=== PATIENT | female | born 2000 | race Caucasian/White ===

== ENCOUNTER 2024-02-24 10:19 | Emergency (ER) | payer BC, SELFPAY ==
[2024-02-24 10:30] VITALS: BP 110/77; PULSE 101; RESP 18; TEMP 36.2; O2SAT 100
--- NOTE | 2024-02-24 11:31 | ED.GENADULT ---
HPI - General Adult General Chief complaint: Urogenital-Female Stated complaint: Urinary Problem Source: patient Mode of arrival: ambulatory Limitations: no limitations History of Present Illness HPI narrative: Patient presents for evaluation of raised bumps to her vaginal area with associated drainage for the last 5 days. She states that the drainage is yellow and bloody. Three days ago she developed dysuria, urinary frequency, urgency, and hesitancy. No fever, chills, nausea, vomiting, diarrhea. LMP 02/01/2024. She is sexually active with one male partner, always using condoms. No other contraceptive use. Related Data Home Medications Medication Instructions Recorded Confirmed norgestimate 0.25 mg-ethinyl 1 tablet DAILY 02/24/24 02/24/24 estradiol 35 mcg tablet (Estarylla) Allergies Allergy/AdvReac Type Severity Reaction Status Date / Time No Known Allergies Allergy Verified 02/24/24 10:31 Review of Systems Review of Systems: CONSTITUTIONAL: Denies fever, chills, or sweats. EYES: Denies visual changes, redness, or discharge. ENT: Denies rhinorrhea, congestion, sore throat, or otalgia. CARDIOVASCULAR: Denies chest pain, palpitations, or edema. RESPIRATORY: Denies cough or dyspnea. GASTROINTESTINAL: Denies abdominal pain, nausea, vomiting, or diarrhea. GENITOURINARY: Reports yellow vaginal discharge. Reports urinary frequency, dysuria, urgency, hesitancy SKIN: Reports bumps to vaginal area. Denies rash or itching. MUSCULOSKELETAL: Denies back pain, joint pain, or myalgia. NEUROLOGIC: Denies headache, numbness, dizziness, or weakness. PSYCHIATRIC: Denies anxiety or depression. [facility] Past Medical History Medical History No significant past medical history Surgical History Surgical History No pertinent past surgical history Family History Family History (Updated 02/24/24 @ 11:43 by SEDRICK Fernández, ALYSSA) Mother Family history non-contributory Other Malignant neoplasm of prostate Social History Social History Substance use: never Gender identity (if verbalized by the patient): Female Sexual Orientation (if Verbalized by the Patient): Straight or Heterosexual Spiritual care concerns: No Exam Narrative: GENERAL: Well-appearing, well-nourished, and in no acute distress. HEAD: Normocephalic, atraumatic. EYES: PERRLA and EOMI. ENT: Nares clear, no rhinorrhea or epistaxis. Mucous membranes moist. Oropharynx without tonsillar hypertrophy exudate or other lesions. Bilateral TMs pearly [place] nonbulging NECK: Supple. No adenopathy or masses. No carotid bruits or JVD CHEST: Clear to auscultation. No respiratory distress. No wheezes rales or rhonchi HEART: Regular rate and rhythm. No murmur heard. Normal peripheral pulses. ABDOMEN: Soft, nontender, nondistended, normal active bowel sounds. EXTREMITIES: Normal range of motion. No edema. GENITAL: There are multiple ulcerative lesions noted to the external labia and vaginal vault. No adnexal tenderness or CMT. Vaginal lesions are tender to palpation. There is mucous-consistent green/bloody drainage noted in vaginal vault NEURO: No focal deficits. Alert and oriented x3. PSYCH: Normal mood and affect. Course Course Emergency Course: This is a 23-year-old female who presented for evaluation of urinary symptoms and vaginal lesions. She has multiple or sedative lesions consistent with herpes simplex. Will treat with Valtrex. She should have comprehensive STI examination performed. Advised not to the be sexually active while she has open lesions. Follow-up with primary care provider go to the ER for worsening symptoms. Patient in agreement with plan of care Level of Care: Express Care Visit Vital Signs Vital signs: Vital Signs Temperature 36
[2024-02-24 11:34] LABS: EDUAAPPEAR Cloudy; EDUABILI 1+ (Negative); EDUABLOOD 2+ (Negative); EDUACOLOR1 Amber; EDUAGLUCOSE Negative (Negative); EDUAKETONE Negative (Negative); EDUALEUKO Negative (Negative); EDUANITRATE Negative (Negative); EDUAPROTEIN 1+ (Negative)
[2024-02-24 11:38] LABS: BEDSIDEPREGUCG Negative (Negative)
[2024-02-24 21:55] LABS: Trichomonas Vag PCR NOT DETECTED (NOT DETECTE)
[2024-02-24 22:18] LABS: Chlamydia trachomatis NOT DETECTED (NOT DETECTE); Neisseria gonorrhoeae PCR NOT DETECTED (NOT DETECTE)
[2024-02-26 14:28] LABS: Bacterial Vaginosis POSITIVE (NEGATIVE)
[2024-02-27 05:26] LABS: Source VAGINA
== END 2024-02-24 11:53 | disposition home or self-care (01) ==
PROVIDERS: Emergency Provider Nurse Practitioner
DX: A60.00 Herpesviral infection of urogenital system, unspecified (principal); N76.0 Acute vaginitis
CPT/HCPCS: 81003; 81025; 81513; 87255; 87491; 87591; 87661; 99204; G0463